=== PATIENT | female | born 1990 | race Asian ===

== ENCOUNTER → 2019-02-13 | Outpatient (CLI) | payer BC ==
--- NOTE | 2019-02-13 14:59 | NUR ---
Pt, Raven Tolliver, presents for outpatient consult because of ongoing breast and areola pain. Her is now 7.5 months old. Hx: Delivery by repeat c/section in [place]. Successful experience with first child, now 2 yo. Onset of left breast pain at 3-3.5 months . Treated in [place] for yeast infection and nipple bled with antibx et IBP x 1 week, repeated for a second week. Pain returns after 2 more weeks, advised she had clogged milk duct, managed with self care. Initial contact with this IBCLC after referral from Dr. Estrellita Bashir 01/06/2019. Based on antibx history, suspected ductal yeast infection. Pt treated with fluconazol x14 days and Dugan's Nipple Cream. Pt contacted this IBCLC on 02/10/19 with c/o pain to the areola and stabbing "like contractions" to left breast again, which led to this consult. At this time exam of breast and nipple is WNL, no lesions, exudate, lumps, erythema, cracks, abrasions or warmth to observation or touch bilaterally. Pain reported when IBCLC touched the areola with exam. Reports burning to the areola, and a stabbing pain shooting up the breast at the 1500 location. Onset of pain is about 20 min after nursing.
== END ==
LOC: LAC 13:01
DX: Z39.1 Encounter for care and examination of lactating mother (principal); Z71.89 Other specified counseling